=== PATIENT | male | born 1980 | race Caucasian/White ===

== ENCOUNTER 2018-05-28 21:52 | Emergency (ER) | payer OTHER, SELFPAY ==
[2018-05-28 21:59] VITALS: BP 140/61; PULSE 60; RESP 18; TEMP 36.1; O2SAT 96; BMI 26.4
--- NOTE | 2018-05-28 22:24 | DI.CT.S_ITS ---
PROCEDURE: CT ANGIO CHEST PE PROTOCOL INDICATIONS: chest pain, history of pulmonary embolism TECHNIQUE: After the administration of intravenous contrast, 2 mm thick sections acquired from the pulmonary apices to the posterior costophrenic angles. 3-dimensional maximum intensity projection (MIP) coronal and sagittal reformats were then acquired through the thorax. For radiation dose reduction, the following was used: automated exposure control, adjustment of mA and/or kV according to patient size. COMPARISON: None. FINDINGS: Image quality: Excellent. Pulmonary arteries: A questionable filling defect is present within a subsegmental branch of the left lower lobe (series 4, image 86). Similarly, questionable nonocclusive thrombus is present within a adjacent subsegmental branch of the left lower lobe (series 4, image 83). No other pulmonary embolus visualized. Lungs and pleura: Lungs are clear. No pleural effusions or pneumothorax. Central and peripheral airways are patent. Mediastinum: Heart size is normal, without pericardial effusion. No mediastinal or hilar adenopathy. Thoracic aorta is normal in caliber and enhancement. Esophagus is normal in caliber, without hiatal hernia. Bones and chest wall: No suspicious bony lesions. Ribs and thoracic spine appear intact throughout. Thyroid gland is unremarkable. No axillary or supraclavicular adenopathy. Abdomen: Visualized upper abdominal solid organs appear normal in the early arterial phase of enhancement. IMPRESSION: 1. Subtle findings suspicious for nonocclusive subsegmental embolus in the left lower lobe as above. This finding was discussed with the emergency department at 11:59 PM on 05/28/18. 2. No acute pulmonary findings. Note: The preliminary [facility] interpretation and the final report are concordant. Dictated by: Ericka Dobbs M.D. on 05/29/2018 at 8:42 Approved by: Ericka Dobbs M.D. on 05/29/2018 at 8:49
--- NOTE | 2018-05-28 22:26 | PC.NURSE ---
Patient C/o Chest tightness since Saturday, denies pain at this time. States he was sent from [facility] for follow up. Has Hx of PE. States this does not feel like it did last time. Denies SOB, and difficulty breathing. Pt states the doctor recently pointed out his finger nail clubbing, and redness in his hands. States he feels that his hands are slightly swollen but does not know when it started. States he occasionally has a few coughs during the time he his having his chest tightness.
--- NOTE | 2018-05-28 22:30 | ED_ITS ---
HPI - Chest Pain General Chief Complaint: Chest Pain Stated Complaint: CHEST PAIN, HX PE'S Time Seen by Provider: 05/28/18 22:13 Source: patient Mode of arrival: ambulatory Limitations: no limitations History of Present Illness HPI narrative: 38-year-old male with history of PEs presents to the emergency department with a chief complaint of right-sided chest tightness with some radiation to his left chest for the past few days. He had an unprovoked pulmonary embolism 7 months ago in his right lung and was treated with Xarelto up until 7 days ago. He denies smoking. Patient has had thorough evaluation by both Cardiology and pulmonology. He denies any provocation, palliation or radiation. MD complaint: chest pain Onset (ago): day(s) Duration: intermittent Onset: during rest Severity: moderate Quality: tightness and aching Pain radiation: none Relieving factors: nothing Exacerbating factors: nothing Treatments prior to arrival chest pain: none Related Data Previous Rx's Medication Instructions Recorded rivaroxaban [Xarelto] 15 mg PO BID 21 Days #42 tab 05/29/18 Review of Systems Review of Systems All systems reviewed & are unremarkable except as noted in HPI and below Constitutional Denies chills, Denies fever(s), Denies lethargy and Denies weakness Eyes Denies change in vision, Denies eye discharge, Denies irritation and Denies loss of vision ENT Ears, Nose, Mouth, and Throat: Denies change in voice, Denies neck pain and Denies sore throat Cardiovascular Reports chest pain, Denies irregular heart rhythm, Denies lightheadedness, Denies palpitations, Denies dyspnea, Denies dyspnea on exertion and Denies orthopnea Respiratory Denies cough, Denies dyspnea, Denies dyspnea on exertion and Denies wheezing Gastrointestinal Gastrointestinal: Denies abdominal pain, Denies change in bowel habits, Denies diarrhea, Denies nausea and Denies vomiting Genitourinary Denies hematuria, Denies flank pain, Denies urinary incontinence and Denies urinary urgency Musculoskeletal Denies neck pain Integumentary/Breasts Denies pruritus, Denies erythema, Denies rash and Denies wounds Neurologic Denies confusion, Denies loss of vision and Denies weakness Psychiatric Denies anxiety, Denies confusion, Denies depression, Denies homicidal ideation and Denies suicidal ideation Endocrine Denies palpitations Hematologic/Lymphatic Denies easy bruising Allergic/Immunologic Denies wheezing [facility] Social History Smoking Status: Former smoker Exam Narrative Exam Narrative: 30-year-old male, no acute distress Initial Vital Signs Initial Vital Signs: Vital Signs Temperature 97 F L 05/28/18 21:59 Pulse Rate 60 05/28/18 21:59 Respiratory Rate 18 05/28/18 21:59 Blood Pressure 140/61 05/28/18 21:59 Pulse Oximetry 96 05/28/18 21:59 Const General: cooperative and well developed Nutritional Appearance: well nourished Orientation: alert, awake, oriented x3 and not confused HENMT Head: normocephalic and atraumatic Ears: external ears normal and TM's normal bilaterally Nose: external nose normal and No nasal discharge Face and sinus: sinuses nontender, face symmetric, no sinus tenderness and No dry mucous membranes Mouth: oral mucosae normal and moist mucous membranes Teeth and gingiva: dentition normal Throat: tonsils normal and uvula midline Eyes General: appearance normal, both eyes and all related structures Eyelids: eyelids normal Conjunctivae: conjunctivae normal Sclera: sclerae normal Pupils: PERRL EOM: EOM intact bilaterally Neck Neck: normal visual inspection, trachea midline, No lymphadenopathy, No midline deformity and No JVD Lymphatic: No lymphedema Chest Chest: normal inspection of the chest Resp Effort & Inspection: normal respiratory effort, able to speak in complete sentences, no respiratory distress and no use of accessory muscles Auscultation: clear to auscultation bilaterally, no rales, no rhonchi and no wheezes Cardio Rate: regular rate Rhythm: regular rhythm Heart Sounds: no click, no gallops, no murmurs and no rubs Pulses: normal peripheral pulses GI Inspection: non-distended Palpation: soft, no hepatosplenomegaly, No guarding, No pulsatile mass and No tender Auscultation: normal bowel sounds Back/Spine/Pelvis Back: No CVA tenderness Cervical Spine: cervical ROM normal and No pain with cervical ROM Thoracic/Lumbar Spine: thoracic and lumbar spine normal to inspection Skin General: no rashes or lesions noted, No jaundice and No petechiae Neuro General: alert, oriented x3, gait normal and no focal motor deficits Speech: speech normal Extrem General: full ROM, no clubbing, cyanosis or edema, no pedal edema and no calf tenderness Psych Appearance: well kempt Mental Status: mental status grossly normal Attitude: cooperative Thought Content: normal and suicidality Judgment: judgment good Course Orders Ordered: Discontinued Medications Sodium Chloride (Normal Saline 0.9%) 1,000 mls @ 150 mls/hr IV CONT JUANCHO Last Infusion: 05/29/18 00:57 Dose: 0 mls/hr Admin: 05/28/18 23:02 Dose: 150 mls/hr Rivaroxaban (Xarelto) 15 mg PO NOW ONE Stop: 05/29/18 00:16 Last Admin: 05/29/18 00:51 Dose: 15 mg Vital Signs - 8 hr 05/28/18 21:59 Temperature 97 F L Pulse Rate 60 Respiratory Rate 18 Blood Pressure 140/61 Pulse Oximetry 96 MDM - Chest Pain Differential Diagnosis Likely pneumothorax, stable angina, unstable angina pectoris, atypical chest pain, st elevation myocardial infarction, costochondritis, chest pain and biliary colic Medical Records Data Attestation: I reviewed the patient's medical records. Lab Data Attestation: I reviewed the patient's lab results. Result diagrams: 05/28/18 22:15 05/28/18 22:15 Lab Results 05/28/18 05/28/18 Range/Units 22:15 22:15 WBC 6.6 (4.5-11.0) X10^3/uL RBC 5.52 (4.5-5.9) X10^6/uL Hgb 16.6 (13.5-17.5) g/dL Hct 47.0 (41-53) % MCV 85.1 (80-100) fL MCH 30.0 (26-34) PG MCHC 35.3 (30-36) % RDW 13.7 (11.6-14.8) % Plt Count 222 (150-400) X10^3/uL Neut % (Auto) 45.6 L (50-75) % Lymph % (Auto) 41.5 H (25-40) % [place] % (Auto) 10.3 (3-14) % Eos % (Auto) 1.5 L (2-4) % Baso % (Auto) 1.1 (0-2) % Neut # (Auto) 3000 (3095-2272) /uL Sodium 145 (137-145) mmol/L Potassium 4.2 (3.4-5.1) mmol/L Chloride 103 (98-107) mmol/L Carbon Dioxide 33 H (22-32) mmol/L BUN 18 (9-20) mg/dL Creatinine 1.00 (0.66-1.25) mg/dL Estimated GFR > 60.0 (>60) mL/min BUN/Creatinine Ratio 18.0 (6-22) Glucose 82 (70-100) mg/dL Calcium 10.0 (8.4-10.2) mg/dL Total Bilirubin 1.1 (0.2-1.3) mg/dL AST 32 (17-59) IU/L ALT 38 (21-72) IU/L Alkaline Phosphatase 37 L (38-126) U/L Total Creatine Kinase 92 (55-170) U/L Troponin I < 0.012 (0.01-0.034) ng/mL Total Protein 7.6 (6.3-8.2) g/dL Albumin 4.6 (3.5-5.0) g/dL Globulin 3.0 (1.7-4.1) g/dL Albumin/Globulin Ratio 1.5 (1.0-2.8) Lipase 102 (23-300) U/L Imaging Data CT scan - chest: Radiologist's impression: Patient: NORMA CARRASCO PMR#: [id number] : 1980Acct:[id number] Age/Sex: 38 / MDate of Service: 05/28/18 Loc: Accession Number: [id number] Procedure: CT angio chest PE protocol Ordering Provider: Cipriano Wiggins D.O. PROCEDURE: CT ANGIO CHEST PE PROTOCOL INDICATIONS: chest pain, history of pulmonary embolism TECHNIQUE: After the administration of intravenous contrast, 2 mm thick sections acquired from the pulmonary apices to the posterior costophrenic angles. 3-dimensional maximum intensity projection (MIP) coronal and sagittal reformats were then acquired through the thorax. For radiation dose reduction, the following was used: automated exposure control, adjustment of mA and/or kV according to patient size. COMPARISON: None. FINDINGS: Image quality: Excellent. Pulmonary arteries: A questionable filling defect is present within a subsegmental branch of the left lower lobe (series 4, image 86). Similarly, questionable nonocclusive thrombus is present within a adjacent subsegmental branch of the left lower lobe (series 4, image 83). No other pulmonary embolus visualized. Lungs and pleura: Lungs are clear. No pleural effusions or pneumothorax. Central and peripheral airways are patent. Mediastinum: Heart size is normal, without pericardial effusion. No mediastinal or hilar adenopathy. Thoracic aorta is normal in caliber and enhancement. Esophagus is normal in caliber, without hiatal hernia. Bones and chest wall: No suspicious bony lesions. Ribs and thoracic spine appear intact throughout. Thyroid gland is unremarkable. No axillary or supraclavicular adenopathy. Abdomen: Visualized upper abdominal solid organs appear normal in the early arterial phase of enhancement. IMPRESSION: 1. Subtle findings suspicious for nonocclusive subsegmental embolus in the left lower lobe as above. This finding was discussed with the emergency department at 11: 59 PM on 05/28/18. 2. No acute pulmonary findings. Note: The preliminary [facility] interpretation and the final report are concordant. Dictated by: Ericka Dobbs M.D. on 05/29/2018 at 8:42 Approved by: Ericka Dobbs M.D. on 05/29/2018 at 8:49 Discharge Plan Departure Patient Disposition: Home Clinical Impression: Acute pulmonary embolism Discharge Date/Time: 05/29/18 00:59 Interventions: ED Discharge Assessment Last Done: 05/29/18 00:57 Instructions: DI for Pulmonary Embolism Activity Restrictions/Additional Instructions: *You have been diagnosed with [ acute pulmonary embolism ] *What to do: *Take medications as directed *Follow up with your primary care provider in 2-3 days, call for an appointment. Let them know you were seen in the Emergency Department and that we ask that you be seen in follow up *Return to ER if you should have any new, worsening or concerning symptoms Prescriptions: New rivaroxaban [Xarelto] 15 mg tablet 15 mg PO BID 21 Days Qty: 42 RF: 0 Referrals: Frances Selby ARNP [Primary Care Provider] -
[2018-05-28 22:33] LABS: Add Manual Diff / Slide Review NO; Basophils Percent Auto 1.1 % (0-2); Eosinophils Percent Auto 1.5 % (2-4); Hemoglobin 16.6 g/dL (13.5-17.5); Lymphocytes Percent Auto 41.5 % (25-40); Mean Corpuscular HGB Conc 35.3 % (30-36); Mean Corpuscular Volume 85.1 fL (80-100); Monocytes Percent Auto 10.3 % (3-14); Neutrophils Absolute Auto 3000 /uL (3000-5900); Neutrophils Percent Auto 45.6 % (50-75); Platelet Count 222 X10^3/uL (150-400); Red Blood Cell Count 5.52 X10^6/uL (4.5-5.9); Red Cell Distribution Width 13.7 % (11.6-14.8); White Blood Cell Count 6.6 X10^3/uL (4.5-11.0)
[2018-05-28 22:38] LABS: Alanine Aminotransferase 38 IU/L (21-72); Albumin 4.6 g/dL (3.5-5.0); Albumin Globulin Ratio 1.5 (1.0-2.8); Alkaline Phosphatase 37 U/L (38-126); Aspartate Aminotransferase 32 IU/L (17-59); Bilirubin Total 1.1 mg/dL (0.2-1.3); Blood Urea Nitrogen 18 mg/dL (9-20); Carbon Dioxide 33 mmol/L (22-32); Chloride 103 mmol/L (98-107); Creatine Kinase 92 U/L (55-170); Estimated Glomerular Filt Rate > 60.0 mL/min (>60); Glucose 82 mg/dL (70-100); HEMOLYSIS 27 (0-50); Lipase 102 U/L (23-300); Potassium 4.2 mmol/L (3.4-5.1); Sodium 145 mmol/L (137-145); Total Protein 7.6 g/dL (6.3-8.2)
[2018-05-28 22:43] VITALS: BP 137/89; PULSE 59; RESP 28; O2SAT 98
[2018-05-28 22:49] LABS: Troponin I < 0.012 ng/mL (0.01-0.034)
[2018-05-28] MEDS: SODIUM CHLORIDE 0.9% 1,000 ML 150 ML IV (23:02)
[2018-05-29] MEDS: RIVAROXABAN 10 MG TABLET 15 MG PO (00:51)
[2018-05-29 00:57] VITALS: BP 141/69; PULSE 65; RESP 16; O2SAT 98
== END 2018-05-29 00:59 | disposition home or self-care (01) ==
PROVIDERS: Emergency Provider Emergency Medicine; PCP Nurse Practitioner Family
DX: I26.99 Other pulmonary embolism without acute cor pulmonale (principal)
CPT/HCPCS: 36591; 71275; 80053; 82550; 82553; 83690; 84484; 85025; 93005; 96360; 96361; 99283; 99285; Q9967

== ENCOUNTER 2018-06-16 08:43 | Emergency (ER) | payer OTHER, SELFPAY ==
[2018-06-16 08:48] VITALS: BP 146/75; PULSE 60; RESP 16; TEMP 36.7; O2SAT 99; BMI 26.4
--- NOTE | 2018-06-16 09:06 | ED.SOB ---
HPI - SOB/Dyspnea General Chief Complaint: Chest Pain Stated Complaint: TIGHTNESS IN CHEST Time Seen by Provider: 06/16/18 08:50 Source: patient Limitations: no limitations History of Present Illness Patient is a 38-year-old male who presents with shortness of breath. He has known small PEs. These are his 2nd pulmonary embolisms this year. He was seen evaluated on 05/28/2018 he has been off Xarelto for 7 days as he was found to have recurrent PEs and put back on Xarelto. He said that is shortness of breath and chest discomfort got better. However over the last 2 days he has had increasing shortness of breath and chest tightness. He says he feels like he can't take a deep breath. He is currently satting 100% on room air within normal blood pressure. He never has any leg pain or calf pain. He denies any radiation of chest pain no heart palpitations. MD Complaint: shortness of breath Related Data Home Medications Medication Instructions Recorded Confirmed amlodipine 5 mg PO DAILY 06/16/18 06/16/18 Previous Rx's Medication Instructions Recorded rivaroxaban [Xarelto] 15 mg PO BID 21 Days #42 tab 05/29/18 Allergies Allergy/AdvReac Type Severity Reaction Status Date / Time ibuprofen Allergy Verified 06/16/18 08:48 Review of Systems Review of Systems GENERAL: Denies chills, fatigue, malaise, fever, sweats, travel HEENT: Denies sinus pain, ear pain, sore throat, difficulty swallowing, neck pain RESPIRATORY: See HPI CARDIOVASCULAR: See HPI GASTROINTESTINAL: Denies nausea, vomiting, abdominal pain, diarrhea, constipation, melena. : Denies dysuria, frequency, incontinence, hematuria, urinary retention, flank pain. MUSCULOSKELETAL: Denies weakness, joint pain, or bony pain SKIN: No rash, no erythema, no pruritus NEUROLOGIC: Denies weakness, dizziness, headache, numbness, change in speech, confusion PSYCHIATRIC: No concerning psychosocial issues. 12 point review of systems is negative except for those stated above and HPI [facility] Medical History Pulmonary embolism (Acute) Social History Smoking Status: Former smoker Exam Initial Vital Signs Initial Vital Signs: Vital Signs Temperature 98.1 F 06/16/18 08:48 Pulse Rate 60 06/16/18 08:48 Respiratory Rate 16 06/16/18 08:48 Blood Pressure 146/75 H 06/16/18 08:48 Pulse Oximetry 99 06/16/18 08:48 GENERAL: Well-appearing, well-nourished and in no acute distress. HEENT: Head atraumatic,EOMI, pupils reactive, face symmetric CARDIOVASCULAR: Regular rate and rhythm without murmurs, rubs or gallops. RESPIRATORY: Breath sounds equal bilaterally, no wheezes rales or rhonchi. ABDOMEN: Soft, nontender. Normoactive bowel sounds all 4 quadrants. No guarding or rebound. EXTREMITIES: Normal range of motion, no clubbing or edema. Neurovascularly intact. No calf tenderness. Clubbing noted in finger tips NEUROLOGICAL: Alert and oriented x4.Normal gait and speech. Cranial nerves II through XII grossly intact. SKIN: Warm, dry, no laceration, no petechiae, no rashes or lesions. Course Orders Ordered: ED Orders 06/16/18 08:55 B Type Natriuretic Peptide Stat Complete Blood Count AUTO DIFF Stat Comprehensive Metabolic Panel Stat Partial Thromboplastin Time Stat Prothrombin Time INR Stat Troponin & CK Cardiac Panel Stat 06/16/18 09:05 Consult to Respiratory Therapy Evaluate & Treat 06/16/18 09:06 XR chest 2V Stat 06/16/18 10:21 CT angio chest PE protocol Stat Discontinued Medications Albuterol/Ipratropium (Duoneb) 3 ml INH NOW ONE Stop: 06/16/18 09:06 Last Admin: 06/16/18 09:40 Dose: 3 ml Vital Signs - 8 hr 06/16/18 08:48 06/16/18 09:37 06/16/18 09:42 Temperature 98.1 F Pulse Rate 60 54 L 89 Respiratory Rate 16 18 14 Blood Pressure 146/75 H Blood Pressure [Left Arm] 141/63 H Pulse Oximetry 99 98 99 06/16/18 11:22 Temperature Pulse Rate 72 Respiratory Rate 14 Blood Pressure Blood Pressure [Left Arm] 140/68 Pulse Oximetry 98 MDM - SOB/Dyspnea Lab Data Attestation: I reviewed the patient's lab results. Result diagrams: 06/16/18 08:55 06/16/18 08:55 Lab Results 06/16/18 06/16/18 06/16/18 Range/Units 08:55 08:55 08:55 WBC 4.3 L (4.5-11.0) X10^3/uL RBC 5.74 (4.5-5.9) X10^6/uL Hgb 17.1 (13.5-17.5) g/dL Hct 48.6 (41-53) % MCV 84.8 (80-100) fL MCH 29.8 (26-34) PG MCHC 35.2 (30-36) % RDW 13.2 (11.6-14.8) % Plt Count 211 (150-400) X10^3/uL Neut % (Auto) 41.7 L (50-75) % Lymph % (Auto) 46.2 H (25-40) % [place] % (Auto) 8.2 (3-14) % Eos % (Auto) 3.0 (2-4) % Baso % (Auto) 0.9 (0-2) % Neut # (Auto) 1800 L (5434-6213) /uL PT 18.2 H (10.1-12.7) SECONDS INR 1.7 H (0.9-1.3) APTT 46 H (26.4-36.2) SECONDS Sodium 145 (137-145) mmol/L Potassium 3.9 (3.4-5.1) mmol/L Chloride 104 (98-107) mmol/L Carbon Dioxide 29 (22-32) mmol/L BUN 13 (9-20) mg/dL Creatinine 1.00 (0.66-1.25) mg/dL Estimated GFR > 60.0 (>60) mL/min BUN/Creatinine Ratio 13.0 (6-22) Glucose 116 H (70-100) mg/dL Calcium 9.7 (8.4-10.2) mg/dL Total Bilirubin 1.0 (0.2-1.3) mg/dL AST 27 (17-59) IU/L ALT 27 (21-72) IU/L Alkaline Phosphatase 48 (38-126) U/L Total Creatine Kinase 96 (55-170) U/L CK-MB (CK-2) TNP CK-MB (CK-2) Rel Index TNP Troponin I < 0.012 (0.01-0.034) ng/mL B-Natriuretic Peptide < 100.0 (<100) Total Protein 7.6 (6.3-8.2) g/dL Albumin 4.5 (3.5-5.0) g/dL Globulin 3.1 (1.7-4.1) g/dL Albumin/Globulin Ratio 1.5 (1.0-2.8) Imaging Data Chest x-ray: Radiologist's impression: PROCEDURE: XR CHEST 2V INDICATIONS: SHORTNESS OF BREATH AND CHEST TIGHTENING TECHNIQUE: 2 views of the chest were acquired. COMPARISON: [facility], CT, CT ANGIO CHEST PE PROTOCOL, 05/28/2018, 22:43. FINDINGS: Surgical changes and devices: None. Lungs and pleura: No pleural effusions or pneumothorax. Lungs are clear. Mediastinum: Mediastinal contours are normal. Heart size is normal. Bones and chest wall: No suspicious bony abnormalities. Soft tissues appear unremarkable. IMPRESSION: No acute pulmonary process. Dictated by: Cordelia Young M.D. on 06/16/2018 at 9:36 CTA PE: Radiologist's impression: PROCEDURE: CT ANGIO CHEST PE PROTOCOL INDICATIONS: known PE, increased SOB and pain TECHNIQUE: After the administration of intravenous contrast, 2 mm thick sections acquired from the pulmonary apices to the posterior costophrenic angles. 3-dimensional maximum intensity projection (MIP) coronal and sagittal reformats were then acquired through the thorax. For radiation dose reduction, the following was used: automated exposure control, adjustment of mA and/or kV according to patient size. COMPARISON: [facility], CT, CT ANGIO CHEST PE PROTOCOL, 05/28/2018, 22:43. FINDINGS: Image quality: Diagnostic. Pulmonary arteries: The pulmonary arteries are normal in size. No intraluminal filling defects are identified. The previously seen filling defects within the bilateral lower lobe pulmonary arteries are not apparent on the current exam. Lungs and pleura: Lungs are clear. No pleural effusions or pneumothorax. Central and peripheral airways are patent. No lung masses evident. There may be areas of mild atelectasis within the posterior lung bases. Mediastinum: Heart size is normal, without pericardial effusion. No mediastinal or hilar adenopathy. Soft tissue density within the anterior mediastinum is similar to the previous exam. Thoracic aorta is normal in caliber and enhancement. There is mild prominence of the wall of the distal esophagus. There may be very small hiatal hernia. Bones and chest wall: No suspicious bony lesions. Ribs and thoracic spine appear intact throughout. 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 Thyroid gland is not enlarged. No axillary or supraclavicular adenopathy. Abdomen: Visualized upper abdominal solid organs appear normal in the early arterial phase of enhancement. IMPRESSION: 1. Previously noted pulmonary emboli have resolved. No pulmonary emboli are evident on this study. 2. Mild prominence of the wall of the esophagus is nonspecific and may be within normal limits but esophagitis may also have this appearance. 3. Soft tissue within the anterior mediastinum probably represents residual thymus tissue. [address] of the chest is recommended. Dictated by: Reji Marti M.D. on 06/16/2018 at 9:39 ECG Data Attestation: I personally reviewed and interpreted this ECG as follows: Prior ECG tracings: available for review Interpretation: Normal sinus rhythm rate [address] changes or T-wave inversions similar to previous EKG MDM Narrative Medical decision making narrative: Patient did not improve after albuterol he continues to have pain. He states that this is the same pain that he feels both eyes minutes pulmonary embolisms were diagnosed. His vitals are stable satting 100% on room air. Discussed at length that a CT would unlikely change any of the outcome. It would be abnormal for pulmonary blood clot to increase in size on Xarelto however it is possible. We discussed risks of repeat radiation as well. At this time patient feels like his shortness of breath is the same as it was with his 1st pulmonary embolisms has been ongoing for a few days and and feels this clot may be enlarging. CTA actually shows resolution of previous pulmonary embolisms. Other blood work is within normal limits. At this time likely atypical chest pain. He has appointment with pulmonology and Hematology this week. I discussed all findings with the patient and spouse, Education has been performed regarding treatment plan, diagnosis, warning signs and symptoms and all concerns have been addressed. Verbally agree with and understood all of the above. Discharge Plan Departure Patient Disposition: Home Clinical Impression: Atypical chest pain, Pulmonary emboli Discharge Date/Time: 06/16/18 11:24 Interventions: ED Discharge Assessment Last Done: 06/16/18 11:21 Instructions: DI for Atypical Chest Pain Activity Restrictions/Additional Instructions: *You have been diagnosed with atypical chest pain *What to do: CT today shows resolution of previously seen PE. X-ray and blood work within normal limits *Continue to take medications as directed -keep taking Xarelto until otherwise instructed he will likely be on this for life *Follow up with your primary care provider in 2-3 days, follow up with Hematology and pulmonology as previously arranged *Return to ER if you should have worsening shortness of breath, chest discomfort or any new, worsening or concerning symptoms Prescriptions: No Action rivaroxaban [Xarelto] 15 mg tablet 15 mg PO BID 21 Days Qty: 42 RF: 0 amlodipine 5 mg Tablet 5 mg PO DAILY RF: 0 Referrals: Andrew Christensen [Primary Care Provider] -
[2018-06-16 09:15] LABS: INR 1.7 (0.9-1.3); Prothrombin Time 18.2 SECONDS (10.1-12.7)
[2018-06-16 09:16] LABS: Add Manual Diff / Slide Review NO; Basophils Percent Auto 0.9 % (0-2); Hematocrit 48.6 % (41-53); Hemoglobin 17.1 g/dL (13.5-17.5); Lymphocytes Percent Auto 46.2 % (25-40); Mean Corpuscular HGB Conc 35.2 % (30-36); Mean Corpuscular Hemoglobin 29.8 PG (26-34); Mean Corpuscular Volume 84.8 fL (80-100); Monocytes Percent Auto 8.2 % (3-14); Neutrophils Absolute Auto 1800 /uL (3000-5900); Neutrophils Percent Auto 41.7 % (50-75); Platelet Count 211 X10^3/uL (150-400); Red Blood Cell Count 5.74 X10^6/uL (4.5-5.9); Red Cell Distribution Width 13.2 % (11.6-14.8); White Blood Cell Count 4.3 X10^3/uL (4.5-11.0)
[2018-06-16 09:18] LABS: Alanine Aminotransferase 27 IU/L (21-72); Albumin 4.5 g/dL (3.5-5.0); Albumin Globulin Ratio 1.5 (1.0-2.8); Alkaline Phosphatase 48 U/L (38-126); Aspartate Aminotransferase 27 IU/L (17-59); Blood Urea Nitrogen 13 mg/dL (9-20); Calcium 9.7 mg/dL (8.4-10.2); Carbon Dioxide 29 mmol/L (22-32); Chloride 104 mmol/L (98-107); Creatine Kinase 96 U/L (55-170); Estimated Glomerular Filt Rate > 60.0 mL/min (>60); Globulin 3.1 g/dL (1.7-4.1); Glucose 116 mg/dL (70-100); HEMOLYSIS < 15 (0-50); PTT Partial Thromboplastin Tim 46 SECONDS (26.4-36.2); Potassium 3.9 mmol/L (3.4-5.1); Sodium 145 mmol/L (137-145); Total Protein 7.6 g/dL (6.3-8.2)
[2018-06-16 09:30] LABS: Troponin I < 0.012 ng/mL (0.01-0.034)
[2018-06-16 09:37] VITALS: BP 141/61; BP 141/63; PULSE 54; PULSE 61; RESP 18; O2SAT 98; O2SAT 99
[2018-06-16 09:38] LABS: B Type Natriuretic Peptide < 100.0 (<100)
[2018-06-16] MEDS: ALBUTEROL/IPRATROPIUM 3 ML AMPUL INH (09:40)
[2018-06-16 09:42] VITALS: PULSE 89; RESP 14; O2SAT 99
--- NOTE | 2018-06-16 10:21 | DI.CT.S_ITS ---
PROCEDURE: CT ANGIO CHEST PE PROTOCOL INDICATIONS: known PE, increased SOB and pain TECHNIQUE: After the administration of intravenous contrast, 2 mm thick sections acquired from the pulmonary apices to the posterior costophrenic angles. 3-dimensional maximum intensity projection (MIP) coronal and sagittal reformats were then acquired through the thorax. For radiation dose reduction, the following was used: automated exposure control, adjustment of mA and/or kV according to patient size. COMPARISON: Located Within [facility], CT, CT ANGIO CHEST PE PROTOCOL, 05/28/2018, 22:43. FINDINGS: Image quality: Diagnostic. Pulmonary arteries: The pulmonary arteries are normal in size. No intraluminal filling defects are identified. The previously seen filling defects within the bilateral lower lobe pulmonary arteries are not apparent on the current exam. Lungs and pleura: Lungs are clear. No pleural effusions or pneumothorax. Central and peripheral airways are patent. No lung masses evident. There may be areas of mild atelectasis within the posterior lung bases. Mediastinum: Heart size is normal, without pericardial effusion. No mediastinal or hilar adenopathy. Soft tissue density within the anterior mediastinum is similar to the previous exam. Thoracic aorta is normal in caliber and enhancement. There is mild prominence of the wall of the distal esophagus. There may be very small hiatal hernia. Bones and chest wall: No suspicious bony lesions. Ribs and thoracic spine appear intact throughout. 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 Thyroid gland is not enlarged. No axillary or supraclavicular adenopathy. Abdomen: Visualized upper abdominal solid organs appear normal in the early arterial phase of enhancement. IMPRESSION: 1. Previously noted pulmonary emboli have resolved. No pulmonary emboli are evident on this study. 2. Mild prominence of the wall of the esophagus is nonspecific and may be within normal limits but esophagitis may also have this appearance. 3. Soft tissue within the anterior mediastinum probably represents residual thymus tissue. [address] of the chest is recommended. Dictated by: Reji Marti M.D. on 06/16/2018 at 9:39 Approved by: Reji Marti M.D. on 06/16/2018 at 9:56
[2018-06-16 11:22] VITALS: BP 140/68; PULSE 72; RESP 14; O2SAT 98
== END 2018-06-16 11:24 | disposition home or self-care (01) ==
PROVIDERS: Emergency Provider Emergency Medicine; PCP Family Medicine
DX: R07.89 Other chest pain (principal); I26.99 Other pulmonary embolism without acute cor pulmonale
CPT/HCPCS: 36591; 71046; 71275; 80053; 82550; 83880; 84484; 85025; 85610; 85730; 93005; 94640; 99283; 99285; Q9967

== ENCOUNTER → 2018-06-23 10:30 | Oncology outpatient (ONC) | payer OTHER, SELFPAY ==
[2018-06-20 16:09] VITALS: BP 133/71; PULSE 59; RESP 18; TEMP 36.6; O2SAT 99
--- NOTE | 2018-06-20 16:46 | ONC.CONS ---
History of Present Illness - Data of Consult Consult date: 06/20/18 Requesting Physician: Andrew Christensen MD Primary Care Provider: Andrew Christensen MD - Consult Narrative Reason for consult: Pulmonary embolism, recurrent Narrative: Abdirashid Guerra is a 38 year old male. He came in here today accompanied by his Bindu. 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 Patient recalled that on 2017 patient went to the emergency room because of [id number] tightness and shortness of breath and stabbing pain. These had been going on before he seek medical attention. He was sent to [facility] ER. CBC showed WBC 6.8, H/H 16.2/46.1, PLT 212, Lymph 34.2. CTA showed single small isolated segmental right upper lobe pulmonary embolus. Patient therefore was started on Xarelto. Thereafter patient has pulmonary symptoms have completely resolved. At [place] ER, an extensive hypercoagulatable status work-up was obtained and the results are as follows: Prothrombin Gene [id number] mutation negative, Cardiolipin Ab (IgG) <14 (ref < or = 14 negative), Cardiolipin Ab(IgM) < 12 (ref < or =12 negative), Cardiolipin Ab (IgA) < 12 (ref < or = 11 negative), B2 Glycoprotein 1 (IgG) Ab < 9 ( < or = 20 SGU), B2 Glycoprotein 1 (IgA) Ab < 9 ( < or = 20 SGU), BeGlycoprotein I (IgM) < 9 ( < or = 20 SGU), Lupus Anticoagulant not detected, PTT-LA screen 33 (< or = 40), DRVVT screen 43 ( < or = 43), protein S activity 80% (REF 70-150%), activated protein C resistance 5.4 ( ref: > or = 2.1: negative). Antithrombin activity 85% (ref 80-120%), Protein C activity 88% (ref 70-180%), After 7 months of treatment on Xarelto, Xarelto was stopped. However about a week as later patient again experienced what he called I identical symptoms across the chest. And he went to [facility] on 05/28/2018 where he underwent CTA. And this time it showed evidence suspicious for nonocclusive subsegmental embolus in the left lower lobe. He was raised she slid started on Xarelto. At the ER, his CBCs were as follow: WBC 6.6, H/H 16.6/47.0, PLT 222, Lymph 41.5%, ANC 3.0. He was seen by his PCP Andrew Quevedo MD on 06/06/2018. Clubbing of the patient's fingers were noted. Patient was referred to pulmonary for further work-up and hematology at [facility] Dr. Augustine Roberson who recommended continued rivaroxaban per FDA-approved dosing schedule. Several days later, due to persistent respiratory symptoms, he went back to [facility] ER. Repeat CBC showed WBC 4.3, H/H 17.1/48.6, Lymph 46.2, ANC 1.8. Repeat CTA showed that previously noted pulmonary emboli have resolved. He saw Dr. Celestine Delgado at [facility] ([facility]) on . The following studies were ordered and pending: CT abd/pelvis, Echocardiogram, overnight oximetry. He was referred to here for hematology consult. CC: Michelle Medina MD Patient reports pain?: No Home Medications and Allergies Home Medications Medication Instructions Recorded Confirmed Type amlodipine 5 mg PO DAILY 06/16/18 06/16/18 History calcium carbonate 600 mg PO DAILY 06/20/18 06/20/18 History cholecalciferol (vitamin D3) 5,000 unit PO DAILY 06/20/18 06/20/18 History [Vitamin D3] fexofenadine [Melanie Allergy] 180 mg PO DAILY 06/20/18 06/20/18 History fish oil-E-fatty [id number] 06/20/18 History magnesium sulfate 100 mg PO DAILY 06/20/18 06/20/18 History nitroglycerin [Nitrostat] 0.4 mg SUBLINGUAL Q5-15M PRN 06/20/18 06/20/18 History rivaroxaban [Xarelto] 15 mg PO BID 06/20/18 06/20/18 History Allergies Allergy/AdvReac Type Severity Reaction Status Date / Time ibuprofen Allergy Verified 06/16/18 08:48 Medical History - Medical, Surgical, Family History Medical History: Medical History (Last Updated 06/20/18 @ 17:43 by Michelle Medina MD) Clubbing of nails (Acute) Hypertension (Acute) Pulmonary embolism (Acute) - Social History Smoking Status: Former smoker Review of Systems - Patient Self-Reported Symptoms SR eye issues: Vision changes SR ears, nose, mouth, throat issues: Hoarseness SR respiratory issues: Cough, Difficulty breathing SR Cardiovascular issues: Chest pain, discomfort, tightness, Shortness of breath with activity or lying flat SR Skin issues: Nail changes SR Neuro issues: Lightheaded/dizzy, Numbness or tingling All systems PM: reviewed and no additional remarkable complaints except as stated Exam Vital signs: Temp 97.9 F 06/20/18 16:09 Pulse 59 L 06/20/18 16:09 Resp 18 06/20/18 16:09 BP 133/71 06/20/18 16:09 Pulse Ox 99 06/20/18 16:09 ECOG 1 Narrative: Constitutional: Well developed, well nourished, not in any acute respiratory distress, average body habitus, well groomed, pleasant and cooperative. HEENT: Normocephalic atraumatic. Extraocular muscle movement intact. Pupils are round, equal and reactive to light and accommodations. Anicteric sclera. No hearing difficulty; Oral mucus membrane moist and without ulcers. Neck: Supple, symmetrical, and tracheal midline; No palpable thyromegaly and no palpable lymph nodes. Respiratory: No use of accessory muscles. Clear to auscultation, and no wheezes or rales or rubs. Cardiovascular: Regular rate and rhythm, S1 and S2 normal, no murmurs gallops or rubs. No JVD. No pitting edema of lower extremities. Abdomen: Soft, nontender, non-distended, bowel sounds normal, no palpable organomegaly, no hernia, no palpable masses. Upper extremities: apparent clubbing of all finger nails with bright red color instead of cyanotic. Lower extremities: No palpable pedal edema, no clubbing of toes. Lymphatic: no palpable lymph nodes in the neck, axillae, or groins. Musculoskeletal: normal gait and station, no clubbing, no cyanosis, no pitting edema. Skin: no rashes, no ulcers, no petechiae Neurological: Awake and alert and oriented x3. CN II-XII grossly intact. No focal motor or sensory deficit. Psychiatric: Good judgment, good insight, normal affect, normal thought process, cooperative, no depression, no anxiety. Results - Labs All results were reviewed. Please see my documentation in history of present illness. 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 And I talked with the patient that from hematological point of view, he will need probably lifelong anticoagulation. And I emphasized the importance of taking Xarelto as instructed. Patient and patient's Bindu verbalized understanding. Extensive workup has been done at [facility]. Common genetic and common immunological problems are not identified to account for the pulmonary embolism. I talked with the patient of the rare conditions for example paroxysmal nocturnal hemoglobinuria, myeloproliferative disorder, or other occult malignancy. I will obtain blood samples to check for PNH. I reviewed the lab results especially the complete blood count. Patient has a hemoglobin and hematocrit level in the upper normal range. And I will obtain blood samples to check for iron status. (2) Clubbing of nails Unknown etiology at this moment. I will have the patient come back after he has had the CT scan of the chest abdomen pelvis. I encouraged the patient continue follow-up with public relations specialist. - Time Spent with Patient I have scheduled the patient to come back for follow-up visit in 2-3 weeks.
--- NOTE | 2018-06-20 17:06 | P.CONONC_ITS ---
History of Present Illness - Data of Consult Consult date: 06/20/18 Requesting Physician: Andrew Christensen MD Primary Care Provider: Andrew Christensen MD - Consult Narrative Reason for consult: Pulmonary embolism, recurrent Narrative: Abdirashid Guerra is a 38 year old male. He came in here today accompanied by his Bindu. 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 These had been going on before he seek medical attention. He was sent to [facility] ER. CBC showed WBC 6.8, H/H 16.2/46.1, PLT 212, Lymph 34.2. CTA showed single small isolated segmental right upper lobe pulmonary embolus. Patient therefore was started on Xarelto. Thereafter patient has pulmonary symptoms have completely resolved. At [place] ER, an extensive hypercoagulatable status work-up was obtained and the results are as follows: Prothrombin Gene [id number] mutation negative, Cardiolipin Ab (IgG) <14 (ref < or = 14 negative), Cardiolipin Ab(IgM) < 12 ( ref < or =12 negative), Cardiolipin Ab (IgA) < 12 (ref < or = 11 negative), B2 Glycoprotein 1 (IgG) Ab < 9 ( < or = 20 SGU), B2 Glycoprotein 1 (IgA) Ab < 9 ( < or = 20 SGU), BeGlycoprotein I (IgM) < 9 ( < or = 20 SGU), Lupus Anticoagulant not detected, PTT-LA screen 33 (< or = 40), DRVVT screen 43 ( < or = 43), protein S activity 80% (REF 70-150%), activated protein C resistance 5.4 ( ref: > or = 2.1: negative). Antithrombin activity 85% (ref 80-120%), Protein C activity 88% (ref 70-180%), After 7 months of treatment on Xarelto, Xarelto was stopped. However about a week as later patient again experienced what he called I identical symptoms across the chest. And he went to [facility] on 05/28/2018 where he underwent CTA. And this time it showed evidence suspicious for nonocclusive subsegmental embolus in the left lower lobe. He was raised she slid started on Xarelto. At the ER, his CBCs were as follow: WBC 6.6, H/H 16.6/47.0, PLT 222, Lymph 41.5%, ANC 3.0. He was seen by his PCP Andrew Quevedo MD on 06/06/2018. Clubbing of the patient's fingers were noted. Patient was referred to pulmonary for further work-up and hematology at [facility] Dr. Augustine Roberson who recommended continued rivaroxaban per FDA-approved dosing schedule. Several days later, due to persistent respiratory symptoms, he went back to [facility] ER. Repeat CBC showed WBC 4.3, H/H 17.1/48.6, Lymph 46.2, ANC 1.8. Repeat CTA showed that previously noted pulmonary emboli have resolved. He saw Dr. Celestine Delgado at [facility] ([facility]) on . The following studies were ordered and pending: CT abd /pelvis, Echocardiogram, overnight oximetry. He was referred to here for hematology consult. CC: Michelle Medina MD Patient reports pain?: No Home Medications and Allergies Home Medications Medication Instructions Recorded Confirmed Type amlodipine 5 mg PO DAILY 06/16/18 06/16/18 History calcium carbonate 600 mg PO DAILY 06/20/18 06/20/18 History cholecalciferol (vitamin D3) 5,000 unit PO DAILY 06/20/18 06/20/18 History [Vitamin D3] fexofenadine [Melanie Allergy] 180 mg PO DAILY 06/20/18 06/20/18 History fish oil-E-fatty [id number] 06/20/18 History magnesium sulfate 100 mg PO DAILY 06/20/18 06/20/18 History nitroglycerin [Nitrostat] 0.4 mg SUBLINGUAL Q5-15M PRN 06/20/18 06/20/18 History rivaroxaban [Xarelto] 15 mg PO BID 06/20/18 06/20/18 History Allergies Allergy/AdvReac Type Severity Reaction Status Date / Time ibuprofen Allergy Verified 06/16/18 08:48 Medical History - Medical, Surgical, Family History Medical History: Medical History (Last Updated 06/20/18 @ 17:43 by Michelle Medina MD) Clubbing of nails (Acute) Hypertension (Acute) Pulmonary embolism (Acute) - Social History Smoking Status: Former smoker Review of Systems - Patient Self-Reported Symptoms SR eye issues: Vision changes SR ears, nose, mouth, throat issues: Hoarseness SR respiratory issues: Cough, Difficulty breathing SR Cardiovascular issues: Chest pain, discomfort, tightness, Shortness of breath with activity or lying flat SR Skin issues: Nail changes SR Neuro issues: Lightheaded/dizzy, Numbness or tingling All systems PM: reviewed and no additional remarkable complaints except as stated Exam Vital signs: 3 Temp 97.9 F 06/20/18 16:09 Pulse 59 L 06/20/18 16:09 Resp 18 06/20/18 16:09 BP 133/71 06/20/18 16:09 Pulse Ox 99 06/20/18 16:09 ECOG 1 Narrative: Constitutional: Well developed, well nourished, not in any acute respiratory distress, average body habitus, well groomed, pleasant and cooperative. HEENT: Normocephalic atraumatic. Extraocular muscle movement intact. Pupils are round, equal and reactive to light and accommodations. Anicteric sclera. No hearing difficulty; Oral mucus membrane moist and without ulcers. Neck: Supple, symmetrical, and tracheal midline; No palpable thyromegaly and no palpable lymph nodes. Respiratory: No use of accessory muscles. Clear to auscultation, and no wheezes or rales or rubs. Cardiovascular: Regular rate and rhythm, S1 and S2 normal, no murmurs gallops or rubs. No JVD. No pitting edema of lower extremities. Abdomen: Soft, nontender, non-distended, bowel sounds normal, no palpable organomegaly, no hernia, no palpable masses. Upper extremities: apparent clubbing of all finger nails with bright red color instead of cyanotic. Lower extremities: No palpable pedal edema, no clubbing of toes. Lymphatic: no palpable lymph nodes in the neck, axillae, or groins. Musculoskeletal: normal gait and station, no clubbing, no cyanosis, no pitting edema. Skin: no rashes, no ulcers, no petechiae Neurological: Awake and alert and oriented x3. CN II-XII grossly intact. No focal motor or sensory deficit. Psychiatric: Good judgment, good insight, normal affect, normal thought process , cooperative, no depression, no anxiety. Results - Labs All results were reviewed. Please see my documentation in history of present illness. 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 And I talked with the patient that from hematological point of view, he will need probably lifelong anticoagulation. And I emphasized the importance of taking Xarelto as instructed. Patient and patient's Bindu verbalized understanding. Extensive workup has been done at [facility]. Common genetic and common immunological problems are not identified to account for the pulmonary embolism. I talked with the patient of the rare conditions for example paroxysmal nocturnal hemoglobinuria, myeloproliferative disorder, or other occult malignancy. I will obtain blood samples to check for PNH. I reviewed the lab results especially the complete blood count. Patient has a hemoglobin and hematocrit level in the upper normal range. And I will obtain blood samples to check for iron status. (2) Clubbing of nails Unknown etiology at this moment. I will have the patient come back after he has had the CT scan of the chest abdomen pelvis. I encouraged the patient continue follow-up with manufacturing specialist. - Time Spent with Patient I have scheduled the patient to come back for follow-up visit in 2-3 weeks.
[2018-06-23 10:43] LABS: Add Manual Diff / Slide Review NO; Basophils Percent Auto 1.1 % (0-2); Eosinophils Percent Auto 2.2 % (2-4); Hematocrit 48.7 % (41-53); Hemoglobin 16.7 g/dL (13.5-17.5); Lymphocytes Percent Auto 40.1 % (25-40); Mean Corpuscular HGB Conc 34.3 % (30-36); Mean Corpuscular Hemoglobin 29.6 PG (26-34); Mean Corpuscular Volume 86.2 fL (80-100); Monocytes Percent Auto 7.5 % (3-14); Neutrophils Absolute Auto 2400 /uL (3000-5900); Neutrophils Percent Auto 49.1 % (50-75); Platelet Count 201 X10^3/uL (150-400); Red Blood Cell Count 5.65 X10^6/uL (4.5-5.9); Red Cell Distribution Width 13.6 % (11.6-14.8); White Blood Cell Count 4.9 X10^3/uL (4.5-11.0)
[2018-06-23 11:18] LABS: Alanine Aminotransferase 38 IU/L (21-72); Albumin 4.4 g/dL (3.5-5.0); Albumin Globulin Ratio 1.6 (1.0-2.8); Alkaline Phosphatase 41 U/L (38-126); Aspartate Aminotransferase 25 IU/L (17-59); BUN Creatinine Ratio 15.6 (6-22); Bilirubin Total 0.8 mg/dL (0.2-1.3); Blood Urea Nitrogen 14 mg/dL (9-20); Calcium 9.4 mg/dL (8.4-10.2); Carbon Dioxide 30 mmol/L (22-32); Chloride 104 mmol/L (98-107); Estimated Glomerular Filt Rate > 60.0 mL/min (>60); Globulin 2.8 g/dL (1.7-4.1); Glucose 112 mg/dL (70-100); HEMOLYSIS < 15 (0-50); Potassium 3.7 mmol/L (3.4-5.1); Sodium 144 mmol/L (137-145); Total Protein 7.2 g/dL (6.3-8.2)
[2018-06-23 11:53] LABS: Ferritin 99.5 ng/mL (17.9-464)
[2018-06-23 12:17] LABS: HEMOLYSIS < 15 (0-50); Iron 65 ug/dL (49-181)
[2018-06-23 12:29] LABS: Percent Iron Saturation 25 % (20-50); Total Iron Binding Capacity 264 ug/dL (261-462); Transferrin 220 mg/dL (206-381)
--- NOTE | 2018-07-02 14:34 | PC.NURSE ---
labs faxed to Dr Hayden an [facility] per request
--- NOTE | 2018-07-15 13:52 | ONC.SCHED ---
called pt to schedule CT per Dr. Medina request. Pt had already had a CT done and was seen by a [place] physician. Pt called and stated patient was sick and asked that I cancel appointment. She stated they edion call back to reschedule if necessary.
== END ==
PROVIDERS: PCP Family Medicine; Visit Provider Internal Medicine Hematology & Oncology
DX: I26.99 Other pulmonary embolism without acute cor pulmonale (principal); R68.3 Clubbing of fingers
CPT/HCPCS: 36415; 80053; 82728; 83540; 83550; 85025; 99205; 99215

== ENCOUNTER → 2020-06-22 11:09 | Outpatient (CLI) | payer OTHER, SELFPAY ==
--- NOTE | 2020-06-22 | DI.US.S_ITS ---
PROCEDURE: US SOFT TISSUE HEAD AND NECK INDICATIONS: LOCALIZED SWELLING AND LUMP RIGHT NECK TECHNIQUE: Real-time scanning was performed of the neck region of interest, with image documentation. COMPARISON: None. FINDINGS: The area of clinical concern on the right was identified by the patient as located at the angle of the right mandible, where several scattered lymph nodes are present, the largest in this particular area measuring 3 x 6 x 7 mm. Nearby a slightly larger node measuring 0.4 x 0.5 x 2.0 cm was seen. Comparison scanning on the left shows multiple normal-sized lymph nodes the largest measuring 5 x 7 x 10 mm. IMPRESSION: The increased number of small lymph nodes bilaterally is a nonspecific finding, and should be followed clinically. If there is interval enlargement and concern for development of underlying neoplasm such as lymphoma contrast-enhanced neck CT scanning would be recommended. Dictated by: Coy Lemons M.D. on 06/22/2020 at 12:30 Approved by: Coy Lemons M.D. on 06/22/2020 at 12:33
== END ==
PROVIDERS: PCP Family Medicine; Referring Provider Family Medicine; Visit Provider Family Medicine
DX: R22.1 Localized swelling, mass and lump, neck (principal)
CPT/HCPCS: 76536

== ENCOUNTER → 2021-04-28 10:37 | Outpatient (CLI) | payer OTHER, SELFPAY ==
--- NOTE | 2021-04-28 10:38 | DI.US.S_ITS ---
PROCEDURE: US SOFT TISSUE HEAD AND NECK INDICATIONS: CERVICAL ADENOPATHY TECHNIQUE: Real-time scanning was performed of the neck region of interest, with image documentation. COMPARISON: [facility], US, US SOFT TISSUE HEAD AND NECK, 06/22/2020, 11:42. FINDINGS: A superficial lymph node is seen in the palpable area measuring 0.9 x 0.4 x 0.7 cm, previously measuring 0.7 x 0.3 x 0.6 cm on the ultrasound from 06/22/2020. Additional level 2 lymph nodes are seen that are not significantly enlarged by cross-sectional imaging size criteria. Additional intraparotid lymph nodes are seen. IMPRESSION: Multiple nonspecific small lymph nodes correspond to the palpable abnormalities in the right neck, which are not significantly enlarged by size criteria. However, clinical correlation and follow-up is recommended. Dictated by: Alberto Howe M.D. on 04/28/2021 at 12:49 Approved by: Alberto Howe M.D. on 04/28/2021 at 12:53
== END ==
PROVIDERS: PCP Family Medicine; Referring Provider Family Medicine; Visit Provider Family Medicine
DX: R59.0 Localized enlarged lymph nodes (principal)
CPT/HCPCS: 76536

== ENCOUNTER → 2021-05-16 08:11 | Outpatient (CLI) | payer OTHER, SELFPAY ==
[2021-05-16 19:39] LABS: Add Manual Diff / Slide Review NO; Basophils Absolute Auto 100 /uL (0-100); Basophils Percent Auto 1.5 % (0-2); Eosinophils Absolute Auto 100 /uL (0-450); Eosinophils Percent Auto 3.2 % (2-4); Hematocrit 47.8 % (41-53); Hemoglobin 16.3 g/dL (13.5-17.5); Lymphocytes Absolute Auto 2000 /uL (1100-4500); Lymphocytes Percent Auto 44.6 % (25-40); Mean Corpuscular HGB Conc 34.1 % (30-36); Mean Corpuscular Hemoglobin 29.9 PG (26-34); Mean Corpuscular Volume 87.6 fL (80-100); Monocytes Absolute Auto 400 /uL (0-900); Monocytes Percent Auto 8.2 % (3-14); Neutrophils Absolute Auto 1900 /uL (1500-7000); Neutrophils Percent Auto 42.5 % (50-75); Platelet Count 210 X10^3/uL (150-400); Red Blood Cell Count 5.46 X10^6/uL (4.5-5.9); Red Cell Distribution Width 13.4 % (11.6-14.8); White Blood Cell Count 4.5 X10^3/uL (4.5-11.0)
[2021-05-16 19:57] LABS: Erythrocyte Sedimentation Rate 1 MM/HR (0-15)
[2021-05-16 19:58] LABS: Alanine Aminotransferase 25 IU/L (<50); Albumin 4.2 g/dL (3.5-5.0); Albumin Globulin Ratio 1.4 (1.0-2.8); Alkaline Phosphatase 49 U/L (38-126); Aspartate Aminotransferase 31 IU/L (17-59); Bilirubin Total 1.1 mg/dL (0.2-1.3); Blood Urea Nitrogen 16 mg/dL (9-20); Calcium 9.7 mg/dL (8.4-10.2); Carbon Dioxide 28 mmol/L (22-32); Chloride 104 mmol/L (98-107); Estimated Glomerular Filt Rate > 60.0 mL/min (>60); Glucose 107 mg/dL (70-100); HEMOLYSIS < 15 (0-50); Potassium 4.3 mmol/L (3.4-5.1); Sodium 141 mmol/L (137-145); Total Protein 7.2 g/dL (6.3-8.2)
== END ==
PROVIDERS: PCP Family Medicine; Visit Provider Family Medicine
DX: R59.0 Localized enlarged lymph nodes (principal)
CPT/HCPCS: 80053; 85025; 85651